=== PATIENT | male | born 1930 | race Caucasian/White ===

== ENCOUNTER → 2017-03-25 | Outpatient (CLI) | payer MEDICARE ==
[~2017-03-25] MED LIST: BENZOCAINE ONE 20% MUCOSAL SPRAY.; IV NORMAL SALINE 1000ML BAG 1,000 ML ONE; MIDAZOLAM HCL/PF 2 MG/2 ML VIAL. ONE; fentaNYL PF VIAL 100 MCG/2 ML VIAL ONE
--- NOTE | 2017-03-25 15:08 | PCVCIMAG ---
APPROVED REPORT Study performed: 03/25/2017 09:18:35 EXAM: Comprehensive 2D, Doppler, and color-flow Echocardiogram Patient Location: Angio Status: routine Other Information Study Quality: Good Indications Atrial Fibrillation Procedure After obtaining informed consent, patient underwent transesophageal echo in the [facility]. Type of Sedation : Conscious Sedation Sedation was administered by Joan Santo RN. Versed (3.5) Fentanyl (100) Transesophageal probe was inserted and advanced into esophagus without difficulty by Nuno Ho MD. Echo enhancement agent administered: Agitated Saline The KIRSTEN was performed without complications. Throughout the procedure, the blood pressure, pulse oximetry, cardiac rhythm, and rate were monitored. The patient tolerated the procedure without adverse effects. Recovery from conscious sedation was uneventful and vital signs were stable. Left Ventricle The left ventricle is normal size. There is normal LV segmental wall motion. There is normal left ventricular wall thickness. The left ventricular systolic function is normal. The left ventricular ejection fraction is within the normal range. LVEF is 55-60%. Right Ventricle The right ventricle is normal size. The right ventricular systolic function is normal. Atria There is no mass or thrombus in the left atrium or left atrial appendage. The left atrium size is normal. Small amount of right ot left shunting consistent with a patent foramen ovale. The right atrium size is normal. Aortic Valve The aortic valve is trileaflet, mildly sclerotic No aortic regurgitation is present. There is no aortic valvular stenosis. Mitral Valve Mild mitral annular calcification. Mild bileaflet prolapse. Moderate mitral regurgitation. No evidence of mitral valve stenosis. Tricuspid Valve The tricuspid valve is normal in structure. Mild tricuspid regurgitation. Pulmonic Valve The pulmonary valve is normal in structure. There is no pulmonic valvular regurgitation. Great Vessels The aortic root is normal in size. Mild atherosclerosis in aorta. No aneurysm Pericardium There is no pericardial effusion. <Conclusion> The left ventricular systolic function is normal. There is normal LV segmental wall motion. LVEF is 55-60%. There is no mass or thrombus in the left atrium or left atrial appendage. Small amount of right ot left shunting consistent with a patent foramen ovale. The aortic valve is trileaflet, mildly sclerotic No aortic regurgitation or stenosis Mild mitral annular calcification. Mild bileaflet prolapse. Moderate mitral regurgitation. Mild aortic atherosclerosis There is no pericardial effusion.
== END | disposition home or self-care (01) ==
LOC: PCVCINTER 08:27
PROVIDERS: ATTEND Internal Medicine
DX: I48.91 Unspecified atrial fibrillation (principal); I08.1 Rheumatic disorders of both mitral and tricuspid valves; I70.0 Atherosclerosis of aorta
CPT/HCPCS: 85610; 92960; 93005; 93312; 93325; 99152; 99153; J2250; J3010; J7030